=== PATIENT | female | born 1950 | race Two or more races ===

== ENCOUNTER 2019-05-14 12:44 | Inpatient (IN) | payer OTHER ==
[~2019-05-14] VITALS: Ht 154.9 cm; Wt 75.3 kg
[2019-05-14] MEDS ORDERED: SINGULAIR 10MG10 MG PO (13:04)
[2019-05-14] MEDS ORDERED: LOSARTAN POTAS100 MG PO (13:04)
[2019-05-14] MEDS ORDERED: CARDURA1 MG PO (13:04)
[2019-05-14] MEDS ORDERED: HUMALOG100 UNIT/1 SUBCUTANEO (13:05)
[2019-05-14] MEDS ORDERED: LIPITOR40 MG PO (13:05)
[2019-05-14] MEDS ORDERED: LANTUS SOL100 UNIT/1 SUBCUTANEO (13:05)
[2019-05-21] MEDS ORDERED: CARVEDILOL25 MG PO (09:53)
[2019-05-21] MEDS ORDERED: CARdura 2MG TABLET PO (09:53)
[2019-05-21] MEDS ORDERED: NIFEDIPINE ER30 MG PO (09:53)
[2019-05-21] MEDS ORDERED: CARdura 4MG TABLET PO (09:53)
[2019-05-21] MEDS ORDERED: HYDRALAZINE HCL50 MG PO (09:53)
[2019-05-21] MEDS ORDERED: INTEGRA PLUS C1 EACH PO (10:05)
== END 2019-05-21 10:13 | disposition home or self-care (01) | DRG 682 ==
LOC: ER 12:44 → SEC-K 19:06 → MEDJ 19:06
PROVIDERS: ADMIT Internal Medicine
PROC: BW28ZZZ Computerized Tomography (CT Scan) of Head (ICD-10-PCS; principal; 2019-05-14)
PROC: 4A033R1 Measurement of Arterial Saturation, Peripheral, Percutaneous Approach (ICD-10-PCS; 2019-05-14)
PROC: B246ZZZ Ultrasonography of Right and Left Heart (ICD-10-PCS; 2019-05-15)
PROC: BT4JZZZ Ultrasonography of Kidneys and Bladder (ICD-10-PCS; 2019-05-15)
PROC: 30233N1 Transfusion of Nonautologous Red Blood Cells into Peripheral Vein, Percutaneous Approach (ICD-10-PCS; 2019-05-15)
PROC: 4A12X4Z Monitoring of Cardiac Electrical Activity, External Approach (ICD-10-PCS; 2019-05-15)
PROC: C21G1ZZ Planar Nuclear Medicine Imaging of Myocardium using Technetium 99m (Tc-99m) (ICD-10-PCS; 2019-05-20)
DX: N17.8 Other acute kidney failure (principal); I50.41 Acute combined systolic (congestive) and diastolic (congestive) heart failure; I24.9 Acute ischemic heart disease, unspecified; I13.0 Hypertensive heart and chronic kidney disease with heart failure and stage 1 through stage 4 chronic kidney disease, or unspecified chronic kidney disease; I25.111 Atherosclerotic heart disease of native coronary artery with angina pectoris with documented spasm; E11.22 Type 2 diabetes mellitus with diabetic chronic kidney disease; E11.40 Type 2 diabetes mellitus with diabetic neuropathy, unspecified; D50.8 Other iron deficiency anemias; D63.1 Anemia in chronic kidney disease; D69.49 Other primary thrombocytopenia; N18.3 Chronic kidney disease, stage 3 (moderate); Z79.4 Long term (current) use of insulin

== ENCOUNTER 2021-09-03 15:08 | Inpatient (IN) | payer OTHER ==
[~2021-09-03] VITALS: Ht 157.5 cm; Wt 72.6 kg
[~2021-09-03 15:08] MED LIST: CARDURA1 MG PO; CARVEDILOL25 MG PO; CARdura 2MG TABLET PO; CARdura 4MG TABLET PO; HUMALOG100 UNIT/1 SUBCUTANEO; HYDRALAZINE HCL50 MG PO; INTEGRA PLUS C1 EACH PO; LANTUS SOL100 UNIT/1 SUBCUTANEO; LIPITOR40 MG PO; LOSARTAN POTAS100 MG PO; NIFEDIPINE ER30 MG PO; SINGULAIR 10MG10 MG PO
--- NOTE | 2021-09-03 15:45 | NUR ---
PACIENTE FEMENINA, ALERTA Y ORIENTADA. REFIERE DIARREAS HACE 3 PETERSEN. REFIERE HOY A PRESENTADO 3 EPISODIOS DE DIARREAS. REFIERE MALESTAR GENERAL HACE 1 SEMANA. SE MIDE S/V. SE UBICA EN AREA DE OBSERVACION.
--- NOTE | 2021-09-03 17:17 | NUR ---
A EVALUA PTE. SE EDUCA A PTE SOBRE [place] MEDICO. PTE REFIERE COMPRENDER. SE REALIZAN MUESTRAS DE LABORATORIO BAJO MEDIDAS ASEPTICAS. SE ADMINISTRA IV'S AKANKSHA ORDEN MEDICA. PTE MANEJADA POR .
[2021-09-03] MEDS ORDERED: GRALISE600 MG PO (22:47)
[2021-09-03] MEDS ORDERED: ZYLOPRIM100 M1 PO (22:47)
[2021-09-03] MEDS ORDERED: IRON325 MG PO (22:48)
[2021-09-03] MEDS ORDERED: HYDROCHLOROTHIA25 MG PO (22:48)
--- NOTE | 2021-09-04 03:32 | NUR ---
PTE ALERTA Y ORIENTADA X 3 ESFERAS EN CAMA CON BARANDAS ELEVADAS,AREA DE VENOPUNCION PATENTE Y ALIYAH DE EDEMA CON FLUIDOS DE MANTENIMIENTO BAJANDO SIN DIFICULTAD.NO REFIERE DOLOR AL MOMENTO Y SE ASISTE CON PABLITO.PENDIENTE A EVALUACION DE DR Lauren CRESPO.
--- NOTE | 2021-09-04 07:30 | NUR ---
SE RECIBE PTE ALERTA Y ORIENTA X 3 ESFERAS EN CAMA CON BARANDAS ELEVADAS POR SEGURIDAD EN LA UNIDAD DE AISLAMIENTO. RECIBIENDO IV'S 0.9NSS BAJANDO A 150ML/HR AREA DE VENOPUNCION EN BRAZO DERECHO AREA ALIYAH DE EDEMA Y ERITEMA. PENDIENTES RESULTADOS DE LABORATORIOS. PENDIENTE CONSULTA CON DR.MARCUS CRESPO.
[2021-09-13] MEDS ORDERED: DOXAZOSIN MESYLA2 MG (08:15)
[2021-09-13] MEDS ORDERED: CARDURA XL4 MG (08:16)
[2021-09-13] MEDS ORDERED: RETACRIT10000 UNIT (08:17)
== END 2021-09-26 20:40 | disposition home or self-care (01) | DRG 177 ==
LOC: ER 15:08 → SEC-K 09-04 15:20 → MEDI 09-04 15:20 → MEDJ 09-05 12:56 → MEDI 09-15 14:57
PROVIDERS: Radiology Vascular & Interventional Radiology; ADMIT Specialist; ATTEND Specialist
PROC: 3E0F7SF Introduction of Other Gas into Respiratory Tract, Via Natural or Artificial Opening (ICD-10-PCS; 2021-09-04)
PROC: 4A12X4Z Monitoring of Cardiac Electrical Activity, External Approach (ICD-10-PCS; 2021-09-05)
PROC: BW25ZZZ Computerized Tomography (CT Scan) of Chest, Abdomen and Pelvis (ICD-10-PCS; 2021-09-05)
PROC: 8E0ZXY6 Isolation (ICD-10-PCS; 2021-09-06)
PROC: B24BZZZ Ultrasonography of Heart with Aorta (ICD-10-PCS; 2021-09-06)
PROC: 4A033R1 Measurement of Arterial Saturation, Peripheral, Percutaneous Approach (ICD-10-PCS; 2021-09-06)
PROC: XW033E5 Introduction of Remdesivir Anti-infective into Peripheral Vein, Percutaneous Approach, New Technology Group 5 (ICD-10-PCS; 2021-09-07)
PROC: 30233N1 Transfusion of Nonautologous Red Blood Cells into Peripheral Vein, Percutaneous Approach (ICD-10-PCS; 2021-09-09)
PROC: 0YH733Z Insertion of Infusion Device into Right Femoral Region, Percutaneous Approach (ICD-10-PCS; 2021-09-10)
PROC: 5A1D70Z Performance of Urinary Filtration, Intermittent, Less than 6 Hours Per Day (ICD-10-PCS; 2021-09-10)
PROC: 5A1D70Z Performance of Urinary Filtration, Intermittent, Less than 6 Hours Per Day (ICD-10-PCS; 2021-09-13)
PROC: B54PZZZ Ultrasonography of Bilateral Upper Extremity Veins (ICD-10-PCS; 2021-09-13)
PROC: 05HM33Z Insertion of Infusion Device into Right Internal Jugular Vein, Percutaneous Approach (ICD-10-PCS; 2021-09-21)
PROC: 5A1D70Z Performance of Urinary Filtration, Intermittent, Less than 6 Hours Per Day (ICD-10-PCS; 2021-09-21)
PROC: 06PY33Z Removal of Infusion Device from Lower Vein, Percutaneous Approach (ICD-10-PCS; principal; 2021-09-21 17:00)
PROC: 5A1D70Z Performance of Urinary Filtration, Intermittent, Less than 6 Hours Per Day (ICD-10-PCS; 2021-09-24)
DX: U07.1 COVID-19 (principal); J12.82 Pneumonia due to coronavirus disease 2019; N18.6 End stage renal disease; A41.9 Sepsis, unspecified organism; N17.8 Other acute kidney failure; N18.4 Chronic kidney disease, stage 4 (severe); N39.0 Urinary tract infection, site not specified; I16.9 Hypertensive crisis, unspecified; I24.9 Acute ischemic heart disease, unspecified; I31.3 Pericardial effusion (noninflammatory); E87.1 Hypo-osmolality and hyponatremia; E11.22 Type 2 diabetes mellitus with diabetic chronic kidney disease; Z99.2 Dependence on renal dialysis; Z79.4 Long term (current) use of insulin; I12.9 Hypertensive chronic kidney disease with stage 1 through stage 4 chronic kidney disease, or unspecified chronic kidney disease; B96.20 Unspecified Escherichia coli [E. coli] as the cause of diseases classified elsewhere; E78.49 Other hyperlipidemia; E79.0 Hyperuricemia without signs of inflammatory arthritis and tophaceous disease; D63.1 Anemia in chronic kidney disease; E11.21 Type 2 diabetes mellitus with diabetic nephropathy; N28.9 Disorder of kidney and ureter, unspecified; K52.89 Other specified noninfective gastroenteritis and colitis; D69.6 Thrombocytopenia, unspecified; E87.79 Other fluid overload; Z20.822 Contact with and (suspected) exposure to COVID-19; T78.49XA Other allergy, initial encounter

== ENCOUNTER 2021-10-08 22:08 | Emergency (ER) | payer OTHER ==
[~2021-10-08] VITALS: Ht 162.6 cm; Wt 54.4 kg
[~2021-10-08 22:08] MED LIST changes: +CARDURA XL4 MG; +DOXAZOSIN MESYLA2 MG; +GRALISE600 MG PO; +HYDROCHLOROTHIA25 MG PO; +IRON325 MG PO; +RETACRIT10000 UNIT; +ZYLOPRIM100 M1 PO
== END 2021-10-09 01:02 | disposition home or self-care (01) ==
LOC: ER 22:08
DX: R42 Dizziness and giddiness (principal); R53.1 Weakness; Z99.2 Dependence on renal dialysis; I10 Essential (primary) hypertension; E11.69 Type 2 diabetes mellitus with other specified complication; Z79.4 Long term (current) use of insulin